=== PATIENT | female | born 1960 | race Caucasian/White ===

== ENCOUNTER 2017-01-05 08:00 | Day surgery (SDC) | payer BC, OTHER ==
[~2017-01-05] VITALS: Ht 157.5 cm; Wt 72.7 kg
[~2017-01-05 08:00] MED LIST: AMLO10TA2 PO; AZAT50TA9 PO; CHOL10003 PO; CRAN500C6 PO; INSU100I18 SC; INSU100V13 SC; LACT1CAP35 PO; LOSA100T6 PO; METO50TA82 PO; MULT-658 PO; NITR50CA PO; PRED5TAB PO; TACR0.5C4 PO; TACR1CAP4 PO
[2017-01-05] MEDS ORDERED: BUPIVACAINE/PF-EPI 0.25% 1:200K ONE (09:48)
[2017-01-05] MEDS ORDERED: ONDANSETRON 2MG/ML, 2ML ONE (10:00)
[2017-01-05] MEDS ORDERED: PROPOFOL 10 MG/ML, 20ML ONE (10:00)
[2017-01-05] MEDS ORDERED: DEXAMETHASONE 4 MG/ML, 1ML ONE (10:00)
[2017-01-05] MEDS ORDERED: FENTANYL PF 100 MCG/2ML ONE (10:01)
[2017-01-05] MEDS ORDERED: MIDAZOLAM 1 MG/ML, 2ML ONE (10:01)
== END 2017-01-05 12:45 | disposition home or self-care (01) ==
LOC: EDSEX → OUT 08:00 → MERGE 10:00 → OUT 12:45
PROVIDERS: ATTEND Surgery
DX: L57.0 Actinic keratosis (principal); I10 Essential (primary) hypertension; M19.90 Unspecified osteoarthritis, unspecified site; E11.9 Type 2 diabetes mellitus without complications; Z86.14 Personal history of Methicillin resistant Staphylococcus aureus infection; Z94.0 Kidney transplant status; Z94.83 Pancreas transplant status; Z98.890 Other specified postprocedural states; Z90.710 Acquired absence of both cervix and uterus; Z72.89 Other problems related to lifestyle; Z87.440 Personal history of urinary (tract) infections
CPT/HCPCS: 11401; 12031; 82962; 88305; J1100; J2250; J2405; J2704; J3010

== ENCOUNTER 2017-03-19 07:52 | Day surgery (SDC) | payer BC ==
[~2017-03-19] VITALS: Ht 157.5 cm; Wt 72.3 kg
[~2017-03-19 07:52] MED LIST changes: +INSU100I32 SQ; +METF500T4 PO
[2017-03-19] MEDS ORDERED: LACTATED RINGERS 1,000 ML IV SCH (08:40)
[2017-03-19] MEDS ORDERED: FENTANYL PF 100 MCG/2ML ONE (09:05)
[2017-03-19 09:07] VITALS: BP 132/81
[2017-03-19] MEDS ORDERED: HYDROCORTISONE 100 MG INJ. ONE (09:08)
[2017-03-19] MEDS ORDERED: EPINEPHRINE 1 MG/ML, 1ML ONE (09:41)
[2017-03-19] MEDS ORDERED: BUPIVACAINE/PF 0.5% ONE (09:41)
[2017-03-19] MEDS ORDERED: PROPOFOL 10 MG/ML, 20ML ONE (09:48)
[2017-03-19] MEDS ORDERED: CEFAZOLIN 1,000 MG ONE (09:48)
[2017-03-19] MEDS ORDERED: ONDANSETRON 2MG/ML, 2ML ONE (09:48)
[2017-03-19] MEDS ORDERED: HYDROmorphone 1 MG/ML, 1ML IV PRN (10:30)
[2017-03-19] MEDS ORDERED: ONDANSETRON 2MG/ML, 2ML IVPush PRN (10:30)
[2017-03-19] MEDS ORDERED: OXYcodone 5 MG/5 ML ORAL.SOL UDC PO PRN (10:30)
[2017-03-19] MEDS ORDERED: FENTANYL PF 100 MCG/2ML IV PRN (10:30)
[2017-03-19] MEDS ORDERED: MUPIROCIN OINT 2%, 22GM ONE (10:41)
[2017-03-19] MEDS ORDERED: OXYcodone 5 MG/5 ML ORAL.SOL UDC ONE (11:20)
[2017-03-19] MEDS ORDERED: ACETAMINOPHEN 650 MG/20.3 ML UDC ONE (11:20)
[2017-03-19] MEDS ORDERED: ACETAMINOPHEN 325 MG TABLET PO ONE (11:30)
== END 2017-03-19 13:05 ==
LOC: OUT 07:52
PROVIDERS: ATTEND Surgery
DX: C44.42 Squamous cell carcinoma of skin of scalp and neck (principal); C44.622 Squamous cell carcinoma of skin of right upper limb, including shoulder; I10 Essential (primary) hypertension; Z90.710 Acquired absence of both cervix and uterus; Z98.890 Other specified postprocedural states; Z72.89 Other problems related to lifestyle; Z94.0 Kidney transplant status; Z94.83 Pancreas transplant status
CPT/HCPCS: 11603; 11621; 82962; 88305; J0171; J0690; J1720; J2405; J2704; J3010; J3490; J7120